=== PATIENT | male | born 1960 | race Caucasian/White ===

== ENCOUNTER 2018-04-11 15:35 | Emergency (ER) | payer BC ==
[2018-04-11 16:00] VITALS: BP 129/71
--- NOTE | 2018-04-11 16:18 | UC ---
Lower Extremity/Ankle HPI - HPI Summary HPI Summary: pt c/o pain to r heel. it began after prolonged standing on some bleeches this past tuesday. it improved over night but reoccurs during the day. pt is limping from the pain. tried ice and elevation with no relief . no fever or rash. - History of Current Complaint Chief Complaint: UCLowerExtremity Stated Complaint: RIGHT FOOT COMPLAINT Time Seen by Provider: 04/11/18 16:03 Hx Obtained From: Patient Pain Intensity: 1 Able to Bear Weight: Yes - Risk Factors Septic Arthritis Risk Factor: Negative - Allergies/Home Medications Allergies/Adverse Reactions: Allergies Allergy/AdvReac Type Severity Reaction Status Date / Time No Known Allergies Allergy Verified 04/11/18 16:00 PMH/Surg Hx/FS Hx/Imm Hx Endocrine History: Dyslipidemia Cardiovascular History: Hypertension - Surgical History Surgical History: Yes Surgery Procedure, Year, and Place: 1982 ARTHRO RIGHT KNEE [place]. 1965 & 2009 BILATERAL INGINAL HERNIA REPAIRS, [place]. 2013 [place] [facility] [place] Left Rotator cuff - Family History Known Family History: Positive: None, Hypertension Negative: Respiratory Disease - Social History Occupation: Employed Full-time Lives: With Family Alcohol Use: Weekly Alcohol Amount: a couple times a week Substance Use Type: None Smoking Status (MU): Former Smoker Type: Cigars Amount Used/How Often: OCCASIONAL CIGAR Have You Smoked in the Last Year: Yes - NONE IN LAST 8-9 MONTHS When Did the Patient Quit Smoking/Using Tobacco: OCCASS IONAL CIGAR - Immunization History Most Recent Tetanus Shot: FEBRUARY 2012 Vaccination Up to Date: Yes Review of Systems Constitutional: Negative Skin: Negative Eyes: Negative ENT: Negative Respiratory: Negative Cardiovascular: Negative Gastrointestinal: Negative Genitourinary: Negative Motor: Negative Neurovascular: Negative Musculoskeletal: Other: - pain R heel Neurological: Negative Psychological: Negative Is Patient Immunocompromised?: No All Other Systems Reviewed And Are Negative: Yes Physical Exam Triage Information Reviewed: Yes Appearance: Well-Appearing Vital Signs: Initial Vital Signs Temp 98.8 F 04/11/18 15:56 Pulse 64 04/11/18 15:56 Resp 16 04/11/18 15:56 BP 129/71 04/11/18 15:56 Pulse Ox 98 04/11/18 15:56 Vital Signs Reviewed: Yes Eyes: Positive: Conjunctiva Clear ENT: Positive: Normal ENT inspection Neck: Positive: Supple Respiratory: Positive: Lungs clear, Normal breath sounds Cardiovascular: Positive: RRR, No Murmur Abdomen Description: Positive: Nontender, No Organomegaly, Soft Bowel Sounds: Positive: Present Musculoskeletal: Positive: Other: - R heel with slight swelling compared to left. medial plantar surface is tender but not fluctuant. No erythema. Rest of foot and RLE unremarkable with full s/v/m function. Pt has limping gait. Neurological: Positive: Alert Psychological: Positive: Age Appropriate Behavior Skin Exam: Normal Diagnostics - Radiology No standard instances Radiology Interpretation Completed By: Radiologist - FAVORS PLANTAR FASCIITIS, SPUR(SEE REPORT) Lower Extremity Course/Dx - Course Course Of Treatment: NO CONCERN FOR FX OR INFECTION. THERE IS A HEEL SPUR. PROBABLE BURSITIS. BUT PLANTAR FASCITIS IS POSSIBLE - Differential Dx/Diagnosis Provider Diagnoses: acute R heel pain. possible bursitis Discharge - Sign-Out/Discharge Documenting (check all that apply): Discharge/Admit/Transfer - Discharge Plan Condition: Stable Disposition: HOME Prescriptions: Naproxen [Naproxen 500 mg tab] 500 mg PO BID 5 Days #10 tablet. Patient Education Materials: Heel Spur (ED), Plantar Fasciitis (ED) Referrals: Benji Holman MD [Primary Care Provider] - 5 Days Additional Instructions: CONSIDER A HEEL CUSHION. - Billing Disposition and Condition Condition: STABLE Disposition: HOME
--- NOTE | 2018-04-11 16:57 | RAD ---
Indication: RIGHT heel pain which worsens with weightbearing. Comparison: No relevant prior exams available on the [facility] P[facility] for comparison. Technique: 4 views of the RIGHT hindfoot. Report: Negative for fracture or malalignment. Moderate plantar fascia origin bone spur and subtle linear calcification of the plantar fascia origin. Surrounding soft tissue edema. Os trigonum accessory ossicle. IMPRESSION: The constellation of findings favors acute on chronic plantar fasciitis.
== END 2018-04-11 17:11 | disposition home or self-care (01) ==
LOC: UCCORT 15:35
DX: M79.671 Pain in right foot (principal); I10 Essential (primary) hypertension; Z87.891 Personal history of nicotine dependence
CPT/HCPCS: 99212; G0463

== ENCOUNTER 2019-01-08 15:56 | Emergency (ER) | payer BC ==
[2019-01-08 16:12] VITALS: BP 157/88
[2019-01-08] MEDS ORDERED: Albuterol 2.5 MG/3 ML NEB.SOL* (0.083%) INH ONE (17:47)
--- NOTE | 2019-01-08 17:52 | UC ---
Respiratory Complaint HPI - HPI Summary HPI Summary: 58-year-old male reports upper respiratory tract infection symptoms for about 2 weeks. It's been getting worse and it's moving down into his chest. I'm some fevers and chills she's got yellow sputum. Also has rhinorrhea. He's had chest tightness since this morning. He now the cold air makes it worse. The center of his chest. I asked him if he was worried about having a heart attack in the does not use his heart attack and believe it has to do with his upper respiratory tract infection. He does have a history of hypertension and high cholesterol no prior cardiac history. - History of Current Complaint Chief Complaint: UCRespiratory Stated Complaint: COUGH/CONGESTION Time Seen by Provider: 01/08/19 17:38 Pain Intensity: 3 - Allergies/Home Medications Allergies/Adverse Reactions: Allergies Allergy/AdvReac Type Severity Reaction Status Date / Time No Known Allergies Allergy Verified 01/08/19 16:13 PMH/Surg Hx/FS Hx/Imm Hx Previously Healthy: Yes Endocrine History: Dyslipidemia Cardiovascular History: Hypertension - Surgical History Surgical History: Yes Surgery Procedure, Year, and Place: 1982 ARTHRO RIGHT KNEE [place]. 1965 & 2009 BILATERAL INGINAL HERNIA REPAIRS, [place]. 2013 [place] [facility] [place] Rotator cuff - Family History Known Family History: Positive: None, Hypertension Negative: Respiratory Disease - Social History Alcohol Use: Weekly Alcohol Amount: a couple times a week Substance Use Type: None Smoking Status (MU): Former Smoker Type: Cigars Amount Used/How Often: OCCASIONAL CIGAR Have You Smoked in the Last Year: Yes - NONE IN LAST 8-9 MONTHS When Did the Patient Quit Smoking/Using Tobacco: OCCASS IONAL CIGAR - Immunization History Most Recent Tetanus Shot: FEBRUARY 2012 Vaccination Up to Date: Yes Review of Systems All Other Systems Reviewed And Are Negative: Yes Constitutional: Positive: Fever, Chills Skin: Positive: Negative Eyes: Positive: Negative ENT: Positive: Sore Throat, Nasal Discharge, Sinus Congestion Respiratory: Positive: Shortness Of Breath Cardiovascular: Positive: Other - SEE HPI Gastrointestinal: Positive: Negative Motor: Positive: Negative Neurovascular: Positive: Negative Musculoskeletal: Positive: Negative Neurological: Positive: Negative Psychological: Positive: Negative Is Patient Immunocompromised?: No Physical Exam Triage Information Reviewed: Yes Appearance: Well-Appearing, No Pain Distress, Well-Nourished Vital Signs: Initial Vital Signs Temp 99.8 F 01/08/19 16:03 Pulse 81 01/08/19 16:03 Resp 16 01/08/19 16:03 BP 157/88 01/08/19 16:03 Pulse Ox 100 01/08/19 16:03 Vital Signs Reviewed: Yes Eye Exam: Normal Eyes: Positive: Conjunctiva Clear ENT: Positive: Pharyngeal erythema, Nasal congestion, Nasal drainage, TMs normal Neck exam: Normal Neck: Positive: Supple Respiratory: Positive: Lungs clear, Normal breath sounds, No respiratory distress Cardiovascular: Positive: RRR Musculoskeletal Exam: Normal Musculoskeletal: Positive: Strength Intact, ROM Intact, No Edema, Other: - NO CALF TENDERNESS Neurological Exam: Normal Neurological: Positive: Alert, Muscle Tone Normal Psychological Exam: Normal Psychological: Positive: Age Appropriate Behavior Skin Exam: Normal UC Diagnostic Evaluation - Laboratory O2 Sat by Pulse Oximetry: 100 - EKG Cardiac Rate: NL - AT 1605 Cardiac Rhythm: Sinus: Normal - 79 BPM Ectopy: None ST Segment: Normal Respiratory Course/Dx - Course Course Of Treatment: I discussed the chest x-ray with the patient. I do not see any acute disease process radiologist reading is pending. I do not see any ischemic changes in the EKG. We discussed that if there was any concern of cardiac cause for the chest pressure at the patient should go directly to the emergency department. Plan will be to follow-up his primary care physician reevaluated sooner if worse or any questions or concerns. - Differential Dx/Diagnosis Provider Diagnosis: Bronchitis, Chest pressure Discharge - Sign-Out/Discharge Documenting (check all that apply): Patient Departure All imaging exams completed and their final reports reviewed: No Studies - Discharge Plan Condition: Stable Disposition: HOME Prescriptions: Azithromyxin ROSALBA (NF) [Z-Rosalba (Zithromax) 250 mg tabs #6] 2 tab PO .TODAY, THEN 1 DAILY #6 tab Patient Education Materials: Acute Bronchitis (ED), Chest Pain (ED) Referrals: Benji Holman MD [Primary Care Provider] - Additional Instructions: FOLLOW UP WITH YOUR DOCTOR IF NOT COMPLETELY IMPROVED. GO TO THE EMERGENCY DEPARTMENT FOR ANY WORSENING OF YOUR CONDITION; CHEST PAIN, SHORTNESS OF BREATH, YOU FEEL ILL OR QUESTIONS OR CONCERNS. - Billing Disposition and Condition Condition: STABLE Disposition: Home
== END 2019-01-08 18:43 | disposition home or self-care (01) ==
LOC: UCCORT 15:56
DX: J40 Bronchitis, not specified as acute or chronic (principal); R07.89 Other chest pain; I10 Essential (primary) hypertension; Z87.891 Personal history of nicotine dependence
CPT/HCPCS: 71046; 99212; G0463

== ENCOUNTER 2019-10-11 05:34 | Day surgery (SDC) | payer BC ==
--- NOTE | 2019-10-03 13:50 | HP ---
HISTORY AND PHYSICAL: DATE OF ADMISSION/SURGERY: 10/11/19 DATE OF OFFICE VISIT: 10/03/19 SURGEON: Estela Jacobs MD.* (DICTATED BY GREGORIO WEISS) PROCEDURE: Left prepatellar bursectomy. CHIEF COMPLAINT: Left knee pain. HISTORY OF PRESENT ILLNESS: Mr. Ortiz is a 59-year-old gentleman with complaints of left knee pain and swelling secondary to prepatellar bursa. He is elected to proceed with surgery to have it removed. PAST MEDICAL HISTORY: Hypertension, high cholesterol. PAST SURGICAL HISTORY: Bilateral rotator cuff repairs and hernia repair x2. CURRENT MEDICATIONS: 1. Valsartan/hydrochlorothiazide 320/25 mg a day. 2. Vitamin D. 3. Atorvastatin. 4. Calcium 20 mg a day. 5. Advil as needed. ALLERGIES: No known drug allergies. FAMILY HISTORY: Hypertension. SOCIAL HISTORY: He is a 59-year-old gentleman, lives with his . He does not smoke or use drugs. Uses occasional alcohol. REVIEW OF SYSTEMS: A complete 14-point review of systems was reviewed with the patient, which was all negative or noncontributory. He denies history of DVT, PE, hepatitis, HIV, or anesthesia problems. PHYSICAL EXAMINATION GENERAL: Well developed, well nourished, in no acute distress. VITAL SIGNS: He stands 68 inches tall, weighs 225 pounds, blood pressure is 146 /92, heart rate 70. HEENT: Normocephalic, atraumatic. NECK: Supple. No palpable lymph nodes. PULMONARY: The lungs are clear to auscultation bilaterally. CARDIO: Regular rate and rhythm. Strong S1 and S2. ABDOMEN: Soft, nontender, nondistended. NEUROLOGICAL: He is alert and oriented x3. MUSCULOSKELETAL: Left lower extremity: The skin is intact. There are no open wounds or abrasions. There is 7 x 5 cm prepatellar bursa with significant fluid collected. There is no cellulitis. No evidence of infection. He has full range of motion of the left knee. His calf is soft and nontender. He is distally neurovascularly intact. ASSESSMENT AND PLAN: Mr. Ortiz is a 59-year-old gentleman with prepatellar bursa of the left knee. He is elected to have a left prepatellar bursectomy. The surgery is scheduled for 10/11/[address] Jacobs discussed the risks and benefits of the surgery at today's visit and all of his questions were answered. He will follow up with Dr. Jacobs 2 weeks after the surgery. GREGORIO WEISS [id number]/[facility] #: [id number] ANIKET
[~2019-10-11 05:34] MED LIST: Buffered Lidocaine 1% SYRIN* 1 ML/SYRINGE INTRADERM ONE
[2019-10-11] MEDS ORDERED: Acetaminophen TAB* 325 MG PO ONE (06:00)
[2019-10-11] MEDS ORDERED: Lactated Ringers 1000 ML Bag* 1,000 ML IV SCH (06:00)
[2019-10-11] MEDS ORDERED: Acetaminophen TAB* 325 MG ONE (06:15)
[2019-10-11] MEDS ORDERED: ceFAZolin 2 GM in NS PREMIX(*) 2 GM/100 ML BAG IVPB ONE (06:15)
[2019-10-11] MEDS ORDERED: Lidocaine 2% PF * 5 ML VIAL ONE (07:02)
[2019-10-11] MEDS ORDERED: Propofol* 10 MG/ML 20 ML BTL ONE (07:02)
[2019-10-11] MEDS ORDERED: Midazolam* 1 MG/ML 2 ML VIAL (2 MG) ONE (07:04)
[2019-10-11] MEDS ORDERED: fentaNYL* 50 MCG/ML 2 ML VIAL (100 MCG VIAL) ONE (07:05)
[2019-10-11] MEDS ORDERED: ROPIVACAINE 5 MG/ML 30 ML BTL (0.5%) ONE ×2 (07:12→07:51)
[2019-10-11] MEDS ORDERED: Phenylephrine 10 MG/ML VIAL* 1 ML VIAL ONE ×2 (07:45)
[2019-10-11] MEDS ORDERED: Ondansetron INJ* 2 MG/ML VIAL ONE (07:49)
[2019-10-11] MEDS ORDERED: Ketorolac INJ* 30 MG/ML 1 ML VIAL ONE (07:49)
[2019-10-11] MEDS ORDERED: Metoclopramide IV* 5 MG/ML 2 ML VIAL ONE (07:49)
[2019-10-11] MEDS ORDERED: Dexamethasone IV* 4 MG/ML 1 ML (4 MG) ONE (07:49)
[2019-10-11] MEDS ORDERED: oxyCODONE TAB* 5 MG TAB PO PRN (07:51)
[2019-10-11] MEDS ORDERED: Naloxone* 0.4 MG/ML 1 ML VIAL IV PRN (07:51)
[2019-10-11] MEDS ORDERED: DiMENhydriNATE IV* 50 MG/ML VIAL IV PUSH PRN (07:51)
[2019-10-11] MEDS ORDERED: fentaNYL* 50 MCG/ML 2 ML VIAL (100 MCG VIAL) IV PRN (07:51)
[2019-10-11 10:36] VITALS: BP 117/80
[2019-10-11] MEDS ORDERED: Remifentanil* 2 MG VIAL ONE (10:53)
[2019-10-11] MEDS ORDERED: hydrALAZINE IV* 20 MG/ML VIAL ONE ×2 (11:05→11:06)
[2019-10-11] MEDS ORDERED: Rocuronium* 10 MG/ML VIAL ONE (11:07)
--- NOTE | 2019-10-12 00:03 | OP ---
DATE OF OPERATION: 10/11/19 - [facility] DATE OF : 64 SURGEON: Estela Jacobs MD SAWMILL TALLY CLERK: GREGORIO Alvarez. Mr. Rubio did help throughout the procedure with preparation of the leg, wound retraction, and manipulation of the wound and wound closure. ANESTHESIOLOGIST: Dr. Ambrosio. ANESTHESIA: General. PRE-OP DIAGNOSIS: Left knee painful prepatellar bursitis. POST-OP DIAGNOSIS: Left knee painful prepatellar bursitis. OPERATIVE PROCEDURE: Left knee prepatellar bursectomy. TOURNIQUET TIME: 15 minutes. ESTIMATED BLOOD LOSS: 100 cc. COMPLICATIONS: None. SPECIMEN: Prepatellar bursa excised and sent to Pathology. BRIEF HISTORY/INDICATION: Mr. Ortiz is a 59-year-old gentleman who had recurring enlargement of his left prepatellar bursa over the last year. At times, the prepatellar bursa becomes extremely inflamed and painful and reaches quite a large size. He has difficulty with kneeling and deep bending at those times. Conservative treatment failed to relieve his pain. Due to continued pain and dysfunction, he elected to undergo open bursectomy of the left prepatellar bursa. Informed consent was obtained from the patient. He understood the risks of surgery included but were not limited to bleeding, infection, damage to nearby structures, continued pain, need for further surgery , intraoperative complications, anesthesia complications, recurrence of the bursa, stroke, heart attack, blood clot, and . He wished to proceed. INTRAOPERATIVE FINDINGS: Intraoperatively, the patient was noted to have an inflamed thickened prepatellar bursa with no evidence of tumor or infection. DESCRIPTION OF PROCEDURE: Mr. Ortiz was identified in the preanesthesia unit. His left lower extremity was marked as a correct operative side. Informed consent was signed and placed in the chart. The patient was taken to the operating room and placed under anesthesia. A tourniquet was placed on the left thigh. Left lower extremity was prepped and draped in the usual sterile fashion. Preop time-out was made to correctly identify the patient's side and site. Appropriate perioperative antibiotics were given within 1 hour of incision. A 6-cm midline incision was made over the prepatellar bursa. Tourniquet was inflated. 10 blade was used to make the longitudinal incision. Tenotomies were used to dissect out the bursa. Significant amount of fluid was encountered. This was carefully suctioned. There was no evidence of purulent infection or tumor. The bursa was carefully excised using tenotomies and electrocautery. The bursa was sent to Pathology. This is a thickened fibrosed bursa. Underlying patellar tendon and extensor mechanism had no abnormality. The wound was copiously irrigated with sterile saline and tourniquet was turned down at 15 minutes. The wound was closed in a layered fashion using #1 Vicryls and 0-Vicryls, and 2- 0 Vicryls. Skin was closed with running 3-0 nylon suture. Sterile Xeroform, 4x4's, and Webril were used to cover the incision. Cody wrap and cold pack were placed over this. The patient's anesthesia was reversed without difficulty. He was taken to the PACU in stable condition. Intended weightbearing will be weightbearing as tolerated. Intended DVT prophylaxis will be aspirin. [id number]/[facility] #: [id number] MTDD
== END 2019-10-11 10:38 | disposition home or self-care (01) ==
LOC: OR 05:34
PROVIDERS: ATTEND Orthopaedic Surgery Adult Reconstructive Orthopaedic Surgery
DX: M70.42 Prepatellar bursitis, left knee (principal); I10 Essential (primary) hypertension; E78.5 Hyperlipidemia, unspecified
CPT/HCPCS: 88304; A9270-GY; J0360; J0690; J1100; J1885; J2250; J2405; J2704; J2765; J2795; J3010

== ENCOUNTER 2024-09-05 11:07 | Observation (INO) ==
[~2024-09-05 11:07] MED LIST changes: -Buffered Lidocaine 1% SYRIN* 1 ML/SYRINGE INTRADERM ONE; +NS 0.45% 1000 ml BAG 1,000 ML IV SCH; +Naloxone 0.4 mg VIAL 0.4 mg/ml 1 ml VIAL IV PRN; +Ondansetron 4 mg VIAL 2 MG/ML 2 ml VIAL IV PRN; +ROPIVACAINE 5 MG/ML 30 ML BTL (0.5%) ONE; +fentaNYL 100 mcg/2 ml 50 MCG/ML VIAL IV PRN
[2024-09-05] MEDS ORDERED: ROPIVACAINE 5 MG/ML 30 ML BTL (0.5%) ONE (11:18)
[2024-09-05] MEDS ORDERED: fentaNYL 100 mcg/2 ml 50 MCG/ML VIAL ONE (11:18)
[2024-09-05] MEDS ORDERED: Midazolam 5 mg/5 ml VIAL 1 mg/ml 5 ml VIAL (5 mg) ONE (11:18)
[2024-09-05] MEDS ORDERED: Lidocaine 2% PF 5 ML VIAL ONE (11:28)
[2024-09-05 11:42] LABS: Rapid COVID-19 Molecular Detected (Undetected)
[2024-09-05] MEDS ORDERED: ceFAZolin 2 GM PREMIX 2 GM/50 ML BAG ONE (11:47)
[2024-09-05] MEDS ORDERED: Tranexamic Acid 1 GM/100ML BAG 2,000 MG/200 ML BAG IV ONE (11:47)
[2024-09-05] MEDS: Lactated Ringers 1000 ml BAG 1,000 ML IV SCH ×2 (11:51→18:16)
[2024-09-05] MEDS: Buffered Lidocaine 1% SYRIN 1 ml INTRADERM ONE (11:51)
[2024-09-05] MEDS ORDERED: Propofol 10 MG/ML 20 ML BTL ONE (12:26)
[2024-09-05] MEDS ORDERED: fentaNYL 250 mcg/5 ml 50 MCG/ML 5 ml VIAL (250 MCG) ONE (12:26)
[2024-09-05] MEDS ORDERED: Dexamethasone IV 4 MG/ML VIAL 1 ml VIAL ONE (13:43)
[2024-09-05] MEDS ORDERED: Ondansetron 4 mg VIAL 2 MG/ML 2 ml VIAL ONE (13:43)
[2024-09-05] MEDS ORDERED: HYDROmorphone 0.5 MG/0.5 ML SYRINGE ONE (14:04)
[2024-09-05] MEDS ORDERED: Ondansetron ODT 4 mg TAB 4 MG TAB PO PRN (16:24)
[2024-09-05] MEDS ORDERED: Lactulose 30 ml UDC PO PRN (16:24)
[2024-09-05] MEDS ORDERED: Magnesium Hydroxide LIQ 30 ML UDC PO PRN (16:24)
[2024-09-05] MEDS ORDERED: Ondansetron 4 mg VIAL 2 MG/ML 2 ml VIAL IV PRN (16:24)
[2024-09-05] MEDS ORDERED: Morphine 2 MG/ML SYRINGE IV PRN (16:24)
[2024-09-05] MEDS ORDERED: Calcium Carb (TUMS) 500 mg CHEW TAB PO PRN (16:24)
[2024-09-05] MEDS: Acetaminophen IV 1 GM/100ML 1,000 MG/100 ML BAG IV ONE (18:04)
[2024-09-05] MEDS: Magnesium Hydroxide LIQ 30 ML UDC PO SCH (20:25)
[2024-09-05] MEDS: ceFAZolin 2 GM PREMIX 2 GM/50 ML BAG IV SCH (21:14)
[2024-09-06 08:19] LABS: Hematocrit 38.7 % (38-53); Hemoglobin 13.1 g/dL (13.2-16.3); Mean Platelet Volume 7.4 fL (7.5-11.2); Platelet Count 341 10^3/uL (150-450)
[2024-09-06 08:58] LABS: Calcium 8.7 mg/dL (8.6-10.3); Creatinine, Serum 1.09 mg/dL (0.67-1.17); Potassium 4.2 mmol/L (3.5-5.0); eGFR CKD-EPI 77.2 (>60)
[2024-09-06] MEDS: Vitamin THERAPEUTIC TAB PO SCH (09:00)
[2024-09-06] MEDS ORDERED: Valsartan/HCTZ 320/25(NF) TAB PO SCH (09:00)
[2024-09-06 13:41] VITALS: BP 105/61
[2024-09-10] MEDS ORDERED: Cholecalciferol (VIT D3) 1,000 unit TAB PO SCH (09:00)
== END 2024-09-06 15:45 | disposition home or self-care (01) ==
LOC: OR 11:07 → SSU 11:07
PROVIDERS: ADMIT Orthopaedic Surgery Adult Reconstructive Orthopaedic Surgery; ATTEND Orthopaedic Surgery Adult Reconstructive Orthopaedic Surgery